=== PATIENT | male | born 1985 | race Caucasian/White ===

== ENCOUNTER 2020-11-20 00:16 | Inpatient (IN) | payer BC ==
[~2020-11-20] VITALS: Ht 182.9 cm; Wt 95.5 kg
[~2020-11-20 00:16] MED LIST: FLONASE NASAL S16 GM NS; ULTRAM 50MG TAB50 MG PO; ZOLOFT 100MG100 MG PO
[2020-11-20 01:04] LABS: BASO % 0.2 % (0.0-2.0); HEMOGLOBIN 14.8 g/dl (13.5-18.0); LYMPH # 0.8 (1.2-3.4); LYMPH % 15.2 % (20.0-51.0); MEAN CELL VOLUME 81 fl (80.0-100.0); MEAN CORPUSCULAR HEMOGLOBIN 28 pg (27.0-31.0); MEAN CORPUSCULAR HGB CONC 34 g/dl (33.0-37.0); MEAN PLATELET VOLUME 11.4 fl (7.4-10.4); MONO # 0.3 (0.1-0.6); MONO % 5.8 % (1.7-9.3); PLATELET COUNT 188 K/mm3 (130-400); REDCELL DISTRIBUTION WIDTH-CV 12.4 % (11.5-14.5)
[2020-11-20 01:14] LABS: ALANINE AMINOTRANSFERASE 35 U/L (4-49); ALBUMIN 4.1 gm/dL (3.5-5.0); ALKALINE PHOSPHATASE 68 U/L (50-136); ANION GAP 11 mmol/L (7-16); AST,SGOT 63 U/L (15-37); BILIRUBIN,TOTAL 0.8 mg/dL (0.0-1.0); BLOOD UREA NITROGEN 11 mg/dL (9-20); CALCIUM 8.7 mg/dL (8.4-10.2); CARBON DIOXIDE 28 mmol/L (22-30); CHLORIDE 93 mmol/L (98-107); GLUCOSE 129 mg/dL (74-106); POTASSIUM 3.2 mmol/L (3.4-5.0); SODIUM 132 mmol/L (137-145); TOTAL PROTEIN 7.2 gm/dL (6.4-8.2)
[2020-11-20 01:19] LABS: ARTERIAL BLD GAS O2 SATURATION 90.9 % (92-100); ARTERIAL BLOOD GAS BASE EXCESS 1.1 (-2-2); ARTERIAL BLOOD GAS PCO2 33.3 mmHg (35-45); ARTERIAL BLOOD GAS PO2 56.9 mmHg (80-100); ARTERIAL BLOOD GAS pH 7.48 (7.35-7.45)
[2020-11-20 01:26] LABS: TROPONIN-I < 0.012 ng/mL (0.000-0.035)
[2020-11-20 02:19] LABS: COLLECTION METHOD CLEAN CATCH
[2020-11-20 02:40] LABS: MUCOUS Present /lpf; PH 6 (5-8); SQUAMOUS EPITHELIAL 0-2 /hpf; URINE APPEARANCE Clear; URINE BACTERIA None Seen /hpf; URINE BILIRUBIN Negative (NEGATIVE); URINE BLOOD 1+ (NEGATIVE); URINE COLOR Yellow; URINE GLUCOSE Negative (NEGATIVE); URINE KETONE 2+ (NEGATIVE); URINE LEUKOCYTE ESTERASE Negative (NEGATIVE); URINE NITRATE Negative (NEGATIVE); URINE PROTEIN(semi-quant) 1+ (NEGATIVE); URINE UROBILINOGEN Negative (NEGATIVE)
--- NOTE | 2020-11-20 07:09 | NUR ---
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
[2020-11-20 07:27] LABS: GRAN # 3.6 (1.4-6.5); GRAN % 77.4 % (42.2-75.2); HEMATOCRIT 38.5 % (42.0-52.0); HEMOGLOBIN 13.3 g/dl (13.5-18.0); LYMPH # 0.7 (1.2-3.4); LYMPH % 15.8 % (20.0-51.0); MEAN CELL VOLUME 81 fl (80.0-100.0); MEAN CORPUSCULAR HEMOGLOBIN 28 pg (27.0-31.0); MEAN CORPUSCULAR HGB CONC 35 g/dl (33.0-37.0); MEAN PLATELET VOLUME 11.5 fl (7.4-10.4); MONO # 0.3 (0.1-0.6); MONO % 6.2 % (1.7-9.3); PLATELET COUNT 174 K/mm3 (130-400); RED BLOOD COUNT 4.77 M/mm3 (4.20-5.60); REDCELL DISTRIBUTION WIDTH-CV 12.5 % (11.5-14.5)
[2020-11-20 07:30] LABS: ALBUMIN 3.4 gm/dL (3.5-5.0); BILIRUBIN,TOTAL 0.7 mg/dL (0.0-1.0); CREATININE, serum 0.82 (0.66-1.25); POTASSIUM 3.2 mmol/L (3.4-5.0); TOTAL PROTEIN 6.1 gm/dL (6.4-8.2)
[2020-11-20 08:36] VITALS: BP 127/79; PULSE 109; TEMP 98.7
--- NOTE | 2020-11-20 09:36 | NUR ---
Assessment complete. Patient up in the restroom at time,ambulates well independently. Pt denies pain or discomfort at this time. Patient is frustrated as he did not sleep well. He is short and minimally conversational. He has already asked about possible discharge. IVF infusing, IV site CD&I. No other needs were expressed. Call light is in reach.Will continue to [facility].
--- NOTE | 2020-11-20 11:42 | NUR ---
The patient is PUI. Floor Cleaner contacted the patient via room phone to complete intake. The patient lives independently in [place] with his . The patient denies DME use. The patient's PCP is Dr. Arce and patient receives medications from [facility]. The patient does not have advanced directives in the EMR and was not interested in DPOA-HC form. The patient plans to return home at discharge with no concerns about doing so. SW contacted the patient's , Darby to discuss the discharge plan. She was in agreeance. There are no additonal needs at this time.
[2020-11-20 12:21] VITALS: BP 123/79; PULSE 105; TEMP 99.1
--- NOTE | 2020-11-20 12:59 | NUR ---
Chaplain guerrero for patient while standing outside of door.
[2020-11-20 16:40] VITALS: BP 116/73; PULSE 103; TEMP 98.6
--- NOTE | 2020-11-20 18:07 | NUR ---
Patient has had an uneventful shift. Patient continues to deny pain or SOB. He remains independent in the room with no issues through the day. Fluids continue to run at this time. PAtient is aware that we are still waiting on a sputum sample and to call if one is produced. Minimal needs through out the day. He remains on 3L/O2 at this time. Will continue to [facility]. Call light is in reach.
[2020-11-20 19:27] VITALS: BP 119/74; PULSE 100; TEMP 98.8
--- NOTE | 2020-11-20 20:00 | NUR ---
UPDATED PATIENT'S ABOUT THE PATIENT
--- NOTE | 2020-11-20 20:00 | NUR ---
PATIENT IS CALM IN THE ROOM REPORTED OF SWEATING ,CHANGED GOWN AND GIVEN A WARM BLANKET.DUE MEDS GIVEN.ASSESSMENT DONE.DENIES PAIN.NO OTHER NEEDS AT THIS TIME.
[2020-11-20 23:05] VITALS: BP 115/80; PULSE 87; TEMP 97.9
--- NOTE | 2020-11-21 01:00 | NUR ---
PATIENT REPORTED OF SWEATING HIS GOWN AND BED LINEN WERE WET.HE SAYS THAT IS HIS BASELINE AT HOME.NIGHT HOSPITALIST INFORMED.BED LINEN AND GOWN CHANGED PATIENT LEFT COMFORTABLE.RESPIRATORY PANEL SWAB TAKEN,SENT TO LAB.
[2020-11-21 03:45] VITALS: BP 106/72; PULSE 78; TEMP 97.8
--- NOTE | 2020-11-21 04:22 | NUR ---
PATIENT REMAINS CALM,ON 3L O2 VIA NC.REPORTS SWEATING.IVFS ON GOOD PROGRESS.NO OTHER NEEDS AT THIS TIME.
--- NOTE | 2020-11-21 06:05 | NUR ---
PROVIDER NOTIFIED ABOUT THE POSITIVE COVID PCR.
[2020-11-21 07:08] LABS: GRAN # 2.6 (1.4-6.5); GRAN % 72.3 % (42.2-75.2); HEMOGLOBIN 13.8 g/dl (13.5-18.0); LYMPH # 0.6 (1.2-3.4); LYMPH % 17.2 % (20.0-51.0); MEAN CELL VOLUME 83 fl (80.0-100.0); MEAN CORPUSCULAR HEMOGLOBIN 28 pg (27.0-31.0); MEAN CORPUSCULAR HGB CONC 34 g/dl (33.0-37.0); MEAN PLATELET VOLUME 11.1 fl (7.4-10.4); MONO # 0.3 (0.1-0.6); MONO % 9.4 % (1.7-9.3); PLATELET COUNT 200 K/mm3 (130-400); RED BLOOD COUNT 4.95 M/mm3 (4.20-5.60); REDCELL DISTRIBUTION WIDTH-CV 12.7 % (11.5-14.5)
[2020-11-21 07:25] LABS: CALCIUM 8.9 mg/dL (8.4-10.2); CREATININE, serum 0.7 (0.66-1.25); MAGNESIUM 2.5 mg/dL (1.6-2.3); POTASSIUM 4.2 mmol/L (3.4-5.0)
[2020-11-21 08:20] VITALS: BP 123/71; PULSE 79; TEMP 97.6
--- NOTE | 2020-11-21 09:00 | NUR ---
PT AOX4, TEARFUL ABOUT COVID19 DIAGNOSIS. IV FLUIDS INFUSING, MEDICATIONS GIVEN, PT DENIES PAIN OR DISCOMFORT, DENIES N/V, DENIES SOB AT REST OR W/ EXERTION, PT REPORTS CHRONIC DIARRHEA WITH IBS. PT NOT EATING BREAKFAST, NO OTHER NEEDS.
--- NOTE | 2020-11-21 11:52 | NUR ---
DISCONNECTED PT FLUIDS, HUNG REMDESIVIR, BROUGHT IN PT LUNCH. PT SATTING 86% ON 1L, DEEP BREATHING BROUGHT OXYGEN UP TO 91%. EDUCATED PT TO DO DEEP BREATHING EXERCISES FREQUENTLY TO IMPROVE OXYGENATION.
[2020-11-21 12:03] VITALS: BP 133/76; PULSE 97; TEMP 97.8
--- NOTE | 2020-11-21 17:39 | NUR ---
PT PLEASANT, AOX4, DENIES SOB AND N/V, HAS DIARRHEA CHRONICALLY, ON 2L NC. PT EXCITED TO DC TOMORROW, ALL MEDICATIONS GIVEN, UNEVENTFUL SHIFT OVERALL
[2020-11-21 17:45] VITALS: BP 130/81; PULSE 94; TEMP 97.7
[2020-11-21 20:27] VITALS: BP 119/78; PULSE 86; TEMP 97.2
[2020-11-21 20:59] LABS: C-ANCA 9 U/mL (0-99)
[2020-11-21 23:33] VITALS: BP 126/75; PULSE 65; TEMP 97.6
[2020-11-22 05:04] VITALS: BP 125/85; PULSE 71; TEMP 97.5
--- NOTE | 2020-11-22 08:50 | NUR ---
PT PLEASANT, AOX4, DENIES SOB, DENIES N/V, PT ON 2L NC, ATTEMPTED TO WEAN DOWN BUT PT SATTING 88%. PT CAME UP TO 91% ON 2L. PT DENIES PAIN, BROUGHT IN FOOD AND WATER AND APPLE JUICE, MEDICATIONS GIVEN, NO OTHER NEEDS
[2020-11-22 08:52] VITALS: BP 120/80; PULSE 89; TEMP 97.7
[2020-11-22 09:33] VITALS: BP 79/42
--- NOTE | 2020-11-22 12:11 | NUR ---
PT WAS STABLE BETWEEN 90-92 WHILE AMBULATING ON ROOM AIR. AT THIS TIME NO HOME 02 IS REQUIRED TO MAINTAIN PROPER SPO2. PT STATED HE FEELS STACIA HE IS ABLE TO CATCH HIS BREATH NOW, COMPARED TO 3 DAYS AGO HE COULD NOT.
[2020-11-22] MEDS ORDERED: DECADRON6 MG PO (12:17)
[2020-11-22] MEDS ORDERED: ROBITUSSIN100 MG/5 M PO (12:18)
[2020-11-22] MEDS ORDERED: MONODOX100 PO (12:19)
[2020-11-22] MEDS ORDERED: PROAIR HFA0.09 MG/AC IH (12:19)
[2020-11-22 12:39] LABS: ANGIOTENSIN CONVERTING ENZYME 26 U/L (16 - 85)
[2020-11-22 13:01] VITALS: BP 131/82; PULSE 97; TEMP 97.7
--- NOTE | 2020-11-22 13:23 | NUR ---
VITALS TAKEN, MEDICATIONS GIVEN, DISCHARGE EDUCATION PROVIDED, QUARANTINE INFO GIVEN, IV REMOVED, NO OTHER NEEDS.
--- NOTE | 2020-11-22 14:10 | NUR ---
PT ESCORTED OUT VIA WHEELCHAIR, PT BELONGIGNS AND HOME MEDS TAKEN OUT WITH HIM, NO OTHER NEEDS.
== END 2020-11-22 14:15 | disposition home or self-care (01) | DRG 177 ==
LOC: COL.ER 00:16 → MEDICAL 02:38
PROVIDERS: Family Medicine; Internal Medicine; Internal Medicine Pulmonary Disease; Student in an Organized Health Care Education/Training Program; ADMIT Hospitalist
PROC: XW033E5 Introduction of Remdesivir Anti-infective into Peripheral Vein, Percutaneous Approach, New Technology Group 5 (ICD-10-PCS; principal; 2020-11-21)
DX: U07.1 COVID-19 (principal); J12.9 Viral pneumonia, unspecified; J96.01 Acute respiratory failure with hypoxia; E87.1 Hypo-osmolality and hyponatremia; F17.210 Nicotine dependence, cigarettes, uncomplicated; E87.6 Hypokalemia; F32.9 Major depressive disorder, single episode, unspecified; G89.29 Other chronic pain; R00.0 Tachycardia, unspecified; K58.9 Irritable bowel syndrome, unspecified; R31.29 Other microscopic hematuria
CPT/HCPCS: 99223-AI; 99232-AI; 99239; J0456; J0696; J1650; J7030; J7050; J8540; Q9967